=== PATIENT | male | born 1975 | race Caucasian/White ===

== ENCOUNTER 2020-11-25 13:32 | Emergency (ER) | payer OTHER ==
[~2020-11-25 13:32] MED LIST: NORCO 5-325 TA1 EACH PO; PREDNISONE 50 M50 MG PO
[2020-11-25 14:05] LABS: HEMOGLOBIN 14.3 gm/dl (14.0-17.5); RED BLOOD COUNT 4.99 M/UL (4.20-5.50); WHITE BLOOD COUNT 9.9 K/UL (4.5-11.0)
[2020-11-25 14:36] LABS: BUN/CREATININE RATIO 15 (0-10)
== END 2020-11-25 19:28 | disposition home or self-care (01) ==
LOC: ER1 13:32
DX: R55 Syncope and collapse (principal); R42 Dizziness and giddiness; Z86.16 Personal history of COVID-19
CPT/HCPCS: 71046; 80053; 82550; 82553; 82962; 83874; 84484; 85025; 93005; 99284

== ENCOUNTER → 2020-12-16 | Outpatient (CLI) | payer OTHER ==
[2020-12-16 11:50] LABS: BUN/CREATININE RATIO 12 (0-10)
== END ==
LOC: ECHO 10:00
PROVIDERS: Internal Medicine Cardiovascular Disease
DX: R55 Syncope and collapse (principal); I10 Essential (primary) hypertension; I07.1 Rheumatic tricuspid insufficiency
CPT/HCPCS: ECHO; 36415; 80053; 80061; 93306